=== PATIENT | male | born 1970 | race Caucasian/White ===

== ENCOUNTER → 2024-01-15 08:47 | Outpatient (CLI) | payer OTHER, SELFPAY ==
--- NOTE | 2024-01-15 08:49 | DI.MRI.S_ITS ---
PROCEDURE: MR THORACIC SPINE WO CON INDICATIONS: t3 spinal hemangioma TECHNIQUE: Noncontrast sagittal T1 spine echo and T2 fast spin echo, sagittal STIR, and T2 fast spin echo through the thoracic spine. COMPARISON: [facility], , T-SPINE WITHOUT CONTRAST, 06/15/2015, 10:37. FINDINGS: Image quality: Excellent. Alignment and Curvature: There is normal bony alignment. Bone Marrow: No significant focal abnormality can be seen within the T3 vertebral body. Within the T6 vertebral body, there is again seen a rounded lesion that is hyperintense on T1 weighted and T2 weighted imaging, without significant increased STIR signal. This lesion demonstrates a stippled appearance. This lesion is not significantly changed compared to 2015. Similar appearing lesions can be seen elsewhere, which are smaller than the T6 lesion, including within the T10 and T11 vertebral bodies. These lesions are also not significantly changed compared to 2014. Marrow is of normal overall signal. No acute vertebral body compression fractures. Spinal Cord: Visualized spinal cord is normal in size and signal. Paraspinous Soft Tissues: No paravertebral masses. Miscellaneous: No significant neural foraminal or central canal narrowing can be seen. IMPRESSION: Stable benign hemangiomas can be seen at T6, T10, and T11. No significant abnormality seen at the T3 level. Dictated by: Ellis Mccallum M.D. on 01/15/2024 at 9:45 Approved by: Ellis Mccallum M.D. on 01/15/2024 at 9:48
== END ==
PROVIDERS: PCP Family Medicine; Referring Provider Family Medicine; Visit Provider Family Medicine
DX: D18.09 Hemangioma of other sites (principal); R20.0 Anesthesia of skin; R29.898 Other symptoms and signs involving the musculoskeletal system
CPT/HCPCS: 72146